=== PATIENT | male | born 1955 | race Caucasian/White ===

== ENCOUNTER 2020-09-13 06:28 | Day surgery (SDC) | payer OTHER ==
[2020-09-11 13:58] LABS: COVID AG,FIA SOURCE NASOPHARYNGEAL
[~2020-09-13] VITALS: Ht 167.6 cm; Wt 78.6 kg
[~2020-09-13 06:28] MED LIST: ALLO-45 PO; FISH1CAP27 PO; FLUT1BLS10 IH; METO-558 PO; MOME17N NASAL; MONT10TA32 PO; MULT-264 PO; PANT-31 PO; SACC250C9 PO; SIMV-259 PO; VITA100024 PO; ZINC50TA71 PO
[2020-09-13] MEDS ORDERED: ALBUTEROL SULFATE 2.5 MG/0.5 ML NEB SOLUTION NEB ONE (06:29)
[2020-09-13] MEDS ORDERED: BENZOCAINE 20% 50 MCG/SPRAY 57 GM TP ONE (06:29)
[2020-09-13] MEDS ORDERED: LIDOCAINE 2% 30 ML JELLY TP ONE (06:29)
[2020-09-13] MEDS ORDERED: LIDOCAINE 4% 50 ML SOLUTION TP ONE (06:29)
[2020-09-13] MEDS ORDERED: SODIUM CHLORIDE 0.9% 1,000 ML IV ONE (06:30)
[2020-09-13] MEDS ORDERED: SODIUM CHLORIDE 0.9% 1,000 ML ONE (06:37)
[2020-09-13] MEDS ORDERED: MIDAZOLAM HCL 2 MG/2 ML VIAL ONE (07:38)
[2020-09-13] MEDS ORDERED: FentaNYL CITRATE PF 100 MCG/2 ML VIAL ONE (07:38)
[2020-09-13] MEDS ORDERED: MethylPREDNISolone SOD SUCC 125 MG/2 ML VIAL IVP ONE (09:15)
[2020-09-13] MEDS ORDERED: MethylPREDNISolone SOD SUCC 125 MG/2 ML VIAL ONE (09:15)
[2020-09-13] MEDS ORDERED: OXYGEN THERAPY IH SCH (20:00)
== END 2020-09-13 10:20 | disposition home or self-care (01) ==
LOC: SURGERY 06:28
PROVIDERS: ATTEND Internal Medicine Critical Care Medicine
DX: J38.4 Edema of larynx (principal); B37.0 Candidal stomatitis; I10 Essential (primary) hypertension; Z98.890 Other specified postprocedural states; Z79.899 Other long term (current) drug therapy; E78.5 Hyperlipidemia, unspecified
CPT/HCPCS: 31623; 31624; 71045; 87015; 87070; 87101; 87205; 87206; 87220; 87426; 88108; 88184; 88185; 88312; C9803; J2250; J2930; J3010; J7030; J7613; Z7610